=== PATIENT | male | born 1995 | race Caucasian/White ===

== ENCOUNTER 2019-08-29 21:29 | Emergency (ER) | payer OTHER ==
[~2019-08-29] VITALS: Ht 167.6 cm; Wt 61.7 kg
[2019-08-29 21:59] VITALS: Ht 167.6 cm; Wt 61.7 kg
[2019-08-29 23:19] VITALS: BP 129/63
== END 2019-08-29 23:19 | disposition home or self-care (01) ==
LOC: ED 21:29
DX: J03.90 Acute tonsillitis, unspecified (principal)
CPT/HCPCS: J7512

== ENCOUNTER 2020-02-06 02:52 | Emergency (ER) | payer OTHER ==
[~2020-02-06] VITALS: Ht 170.2 cm; Wt 60.3 kg
[2020-02-06 03:00] VITALS: Ht 170.2 cm; Wt 60.3 kg
[2020-02-06 04:16] VITALS: BP 105/69
== END 2020-02-06 04:16 | disposition home or self-care (01) ==
LOC: ED 02:52
DX: J02.9 Acute pharyngitis, unspecified (principal)
CPT/HCPCS: J1885

== ENCOUNTER 2020-02-08 06:11 | Emergency (ER) | payer OTHER ==
[~2020-02-08] VITALS: Ht 167.6 cm; Wt 59.5 kg
[2020-02-08 06:18] VITALS: Ht 167.6 cm; Wt 59.5 kg
[2020-02-08 07:44] LABS: BASOPHIL % 0.3 % (0-2); PLATELET COUNT 335 x10^3mcL (130-400); RED CELL DISTRIBUTION WIDTH 12.8 % (11.5-14.5)
[2020-02-08 09:27] LABS: AMYLASE 46 U/L (25-115); C REACTIVE PROTEIN 4.6 mg/dL (<=0.9); CALCIUM 9.2 mg/dL (8.5-10.1); CARBON DIOXIDE 24.5 mmol/L (21-32); CHLORIDE SERUM 104 mmol/L (98-107); CREATININE SERUM 1.1 mg/dL (0.7-1.3); GFR1 > 60 mL/min; GLUCOSE SERUM 105 mg/dL (74-106); POTASSIUM SERUM 3.8 mmol/L (3.5-5.1); SODIUM SERUM 140 mmol/L (136-145)
[2020-02-08 11:55] VITALS: BP 122/70
== END 2020-02-08 11:55 | disposition home or self-care (01) ==
LOC: ED 06:11
PROVIDERS: Emergency Medicine
DX: J36 Peritonsillar abscess (principal); F17.210 Nicotine dependence, cigarettes, uncomplicated; D72.829 Elevated white blood cell count, unspecified
CPT/HCPCS: 86308; 99406; J0295; J1100; J7030; Q9967